=== PATIENT | male | born 1980 | race Caucasian/White ===

== ENCOUNTER 2022-05-08 13:38 | Inpatient (IN) | payer OTHER ==
[~2022-05-08] VITALS: Ht 172.7 cm; Wt 73.0 kg
[2022-05-08 14:19] LABS: BASOPHILS % (AUTO) 0.1 % (0.0-2.0); EOSINOPHILS % (AUTO) 0.2 % (1.0-6.0); HEMATOCRIT 42.4 % (41-53); HEMOGLOBIN 14.7 g/dL (13.5-17.5); LYMPHOCYTES # (AUTO) 1.6 K/uL (1.0-4.8); LYMPHOCYTES % (AUTO) 26.2 % (22.0-44.0); MEAN CORPUSCULAR HEMOGLOBIN 30.6 pg (26.0-34.0); MEAN CORPUSCULAR HGB CONC 34.7 G/dL (31.0-37.0); MEAN CORPUSCULAR VOLUME 88 fL (80-100); MONOCYTES # (AUTO) 0.5 K/uL (0.1-1.0); MONOCYTES % (AUTO) 8.8 % (2.0-9.0); NEUTROPHILS % (AUTO) 64.7 % (40.0-70.0); PLATELET COUNT (AUTO) 257 K/uL (150-450); RED BLOOD CELL COUNT(AUTO) 4.81 MIL/uL (4.50-5.90); RED CELL DISTRIBUTION WIDTH 12.9 % (11.5-14.5)
[2022-05-08 14:34] LABS: ANION GAP 9 mmol/L (8-16); CALCIUM, TOTAL 9.4 mg/dL (8.8-10.5); CARBON DIOXIDE 28 mmol/L (22-29); CHLORIDE 103 mmol/L (98-107); CREATININE 1.51 mg/dL (0.60-1.30); GLOMERULAR FILTR. RATE CALC 51 mL/min (>60); GLUCOSE,RANDOM 103 mg/dL (70-110); POTASSIUM 3.8 mmol/L (3.5-5.1); SODIUM SERUM 140 mmol/L (136-145); UREA NITROGEN, BLOOD 16 mg/dL (7-18)
[2022-05-08 14:39] LABS: ALANINE AMINOTRANSFERASE 28 U/L (12-78); ALBUMIN 4.3 g/dL (3.4-5.0); ALKALINE PHOSPHATASE 72 U/L (46-116); ASPARTATE AMINOTRANSFERASE 17 U/L (15-37); BILIRUBIN,TOTAL 0.4 mg/dL (0.1-1.0); TOTAL PROTEIN, SERUM 8.6 g/dL (6.4-8.2)
[2022-05-08 14:41] LABS: ACETAMINOPHEN < 2 mcg/mL (10-30)
[2022-05-08 14:48] LABS: SALICYLATE 0.9 mg/dL (2.8-20.0)
[2022-05-08 15:11] LABS: COVID AG,FIA SOURCE NASOPHARYNGEAL
[2022-05-08] MEDS ORDERED: ONDANSETRON HCL 4 MG TABLET PO PRN ×2 (16:45→21:45)
[2022-05-08] MEDS ORDERED: ALBUTEROL SULFATE HFA 90 MCG/PUFF 8 GM INHALER IH PRN (16:45)
[2022-05-08] MEDS ORDERED: NICOTINE 14 MG/24 HOUR PATCH TD PRN (16:45)
[2022-05-08] MEDS ORDERED: LOPERAMIDE HCL 2 MG CAPSULE PO PRN ×2 (16:45→21:45)
[2022-05-08] MEDS ORDERED: CloNIDine HCL 0.1 MG TABLET PO PRN (16:45)
[2022-05-08] MEDS ORDERED: SODIUM CHLORIDE 0.9% 1,000 ML IV ONE (16:45)
[2022-05-08] MEDS ORDERED: MAGNESIUM HYDROXIDE SUSPENSION 30 ML UDCUP PO PRN (16:45)
[2022-05-08] MEDS ORDERED: PETROLATUM,WHITE 28 GM JELLY TP PRN ×2 (16:45→21:45)
[2022-05-08] MEDS ORDERED: DOCUSATE SODIUM 100 MG CAPSULE PO PRN (16:45)
[2022-05-08] MEDS ORDERED: GuaiFENesin/D-METHORPHAN [SUGAR-FREE] 200-20MG/10 ML SYRUP UDCUP PO PRN ×2 (16:45→21:45)
[2022-05-08] MEDS ORDERED: MAG HYDROX/AL HYDROX/SIMETH ES 30 ML SUSPENSION UDCUP PO PRN ×2 (16:45→21:45)
[2022-05-08 21:04] VITALS: BP 135/70
[2022-05-08] MEDS ORDERED: OxyCODONE HCL/ACETAMINOPHEN 5-325 MG TABLET PO ONE ×2 (21:45→22:30)
[2022-05-09 02:29] LABS: APPEARANCE,URINE CLEAR (CLEAR); BILIRUBIN,URINE NEGATIVE (NEGATIVE); GLUCOSE, URINE (UA) NEGATIVE (NEGATIVE); KETONES,URINE NEGATIVE (NEGATIVE); LEUKOCYTE ESTERASE ,URINE NEGATIVE (NEGATIVE); NITRATE,URINE NEGATIVE (NEGATIVE); OCCULT BLOOD,URINE NEGATIVE (NEGATIVE); PH,URINE 5.5 (5.0-8.0); PROTEIN,URINE TRACE mg/dL (NEGATIVE); SPECIFIC GRAVITIY, URINE 1.008 (1.003-1.030); UROBILINOGEN,URINE <=1.0 mg/dL (<=1.0)
[2022-05-09 02:37] LABS: AMPHET/METH SCREEN,URINE NEGATIVE (NEGATIVE); BARBITURATE SCREEN, URINE NEGATIVE (NEGATIVE); BENZODIAZEPINES SCREEN,URINE NEGATIVE (NEGATIVE); CANNABINOID SCREEN,URINE NEGATIVE (NEGATIVE); COCAINE SCREEN,URINE NEGATIVE (NEGATIVE); METHADONE SCREEN, URINE NEGATIVE (NEGATIVE); OPIATE SCREEN,URINE NEGATIVE (NEGATIVE)
[2022-05-09 02:42] LABS: BACTERIA,URINE None Seen /HPF (None Seen); RBC,URINE None Seen /HPF (0-2); WBC,URINE 0-2 /HPF (0-5)
[2022-05-09 02:46] LABS: PHENCYCLIDINE SCREEN,URINE NEGATIVE (NEGATIVE)
[2022-05-09 04:25] VITALS: BP 103/69
[2022-05-09 07:33] VITALS: BP 106/64
[2022-05-09 07:35] LABS: BASOPHILS % (AUTO) 0.4 % (0.0-2.0); EOSINOPHILS % (AUTO) 1.5 % (1.0-6.0); HEMOGLOBIN 14.6 g/dL (13.5-17.5); LYMPHOCYTES # (AUTO) 1.9 K/uL (1.0-4.8); LYMPHOCYTES % (AUTO) 36.4 % (22.0-44.0); MEAN CORPUSCULAR HEMOGLOBIN 30.9 pg (26.0-34.0); MEAN CORPUSCULAR HGB CONC 34.7 G/dL (31.0-37.0); MEAN CORPUSCULAR VOLUME 89 fL (80-100); MONOCYTES # (AUTO) 0.5 K/uL (0.1-1.0); MONOCYTES % (AUTO) 10.4 % (2.0-9.0); NEUTROPHILS # (AUTO) 2.6 K/uL (1.8-7.7); NEUTROPHILS % (AUTO) 51.3 % (40.0-70.0); PLATELET COUNT (AUTO) 245 K/uL (150-450); RED BLOOD CELL COUNT(AUTO) 4.71 MIL/uL (4.50-5.90); RED CELL DISTRIBUTION WIDTH 13.3 % (11.5-14.5)
[2022-05-09 07:47] LABS: CREATININE 1.7 mg/dL (0.60-1.30)
[2022-05-09] MEDS ORDERED: SODIUM CHLORIDE 0.9% 1,000 ML IV ONE (09:45)
[2022-05-09] MEDS: AMOX TR/POT CLAV 500 MG/125 MG TABLET PO SCH ×2 (12:19→20:19)
[2022-05-09] MEDS: CIPROFLOXACIN HCL 0.3% 2.5 ML OPHTHALMIC SOLUTION AD SCH ×3 (12:19→20:19)
[2022-05-09 14:53] VITALS: BP 124/75
[2022-05-09 19:10] VITALS: BP 138/78
[2022-05-09] MEDS: ACETAMINOPHEN 325 MG TABLET PO PRN (22:05)
[2022-05-09] MEDS: TraMADol HCL 50 MG TABLET PO PRN (22:41)
[2022-05-10] MEDS: MORPHINE SULFATE 2 MG/ML SYRINGE IVP PRN ×4 (00:11→13:48)
[2022-05-10 03:07] VITALS: BP 134/77
[2022-05-10 06:31] LABS: ANION GAP 6 mmol/L (8-16); CALCIUM, TOTAL 9.1 mg/dL (8.8-10.5); CARBON DIOXIDE 28 mmol/L (22-29); CHLORIDE 105 mmol/L (98-107); CREATININE 1.06 mg/dL (0.60-1.30); GLUCOSE,RANDOM 121 mg/dL (70-110); POTASSIUM 3.7 mmol/L (3.5-5.1); SODIUM SERUM 139 mmol/L (136-145); UREA NITROGEN, BLOOD 9 mg/dL (7-18)
[2022-05-10 06:51] LABS: GLOMERULAR FILTR. RATE CALC > 60 mL/min (>60)
[2022-05-10 07:19] VITALS: BP 136/86
[2022-05-10] MEDS: CIPROFLOXACIN HCL 0.3% 2.5 ML OPHTHALMIC SOLUTION AD SCH ×4 (07:59→21:28)
[2022-05-10] MEDS: AMOX TR/POT CLAV 500 MG/125 MG TABLET PO SCH ×2 (07:59→21:28)
[2022-05-10] MEDS: RisperiDONE 1 MG TABLET PO SCH ×2 (13:49→21:28)
[2022-05-10 15:58] VITALS: BP 122/75
[2022-05-10 21:10] VITALS: BP 107/68
[2022-05-11 05:10] VITALS: BP 105/62
[2022-05-11 07:10] LABS: ANION GAP 8 mmol/L (8-16); CALCIUM, TOTAL 9.2 mg/dL (8.8-10.5); CARBON DIOXIDE 28 mmol/L (22-29); CHLORIDE 104 mmol/L (98-107); CREATININE 0.94 mg/dL (0.60-1.30); GLUCOSE,RANDOM 96 mg/dL (70-110); POTASSIUM 3.8 mmol/L (3.5-5.1); SODIUM SERUM 140 mmol/L (136-145); UREA NITROGEN, BLOOD 11 mg/dL (7-18)
[2022-05-11 07:14] LABS: GLOMERULAR FILTR. RATE CALC > 60 mL/min (>60)
[2022-05-11 07:32] VITALS: BP 111/65
[2022-05-11] MEDS: MORPHINE SULFATE 2 MG/ML SYRINGE IVP PRN ×3 (10:46→21:01)
[2022-05-11] MEDS: CIPROFLOXACIN HCL 0.3% 2.5 ML OPHTHALMIC SOLUTION AD SCH ×4 (10:50→20:25)
[2022-05-11] MEDS: AMOX TR/POT CLAV 500 MG/125 MG TABLET PO SCH ×2 (10:52→20:25)
[2022-05-11] MEDS: QUEtiapine FUMARATE 100 MG TABLET PO PRN ×2 (11:52→20:25)
[2022-05-11] MEDS: ACETAMINOPHEN 325 MG TABLET PO PRN ×2 (11:52→20:24)
[2022-05-11 15:48] VITALS: BP 139/74
[2022-05-11 20:05] VITALS: BP 140/76
[2022-05-11] MEDS: RisperiDONE 2 MG TABLET PO SCH (20:25)
[2022-05-11] MEDS: ZOLPIDEM TARTRATE 10 MG TABLET PO PRN (21:04)
[2022-05-12 05:20] VITALS: BP 107/66
[2022-05-12 06:52] LABS: ANION GAP 5 mmol/L (8-16); CALCIUM, TOTAL 9.3 mg/dL (8.8-10.5); CARBON DIOXIDE 31 mmol/L (22-29); CHLORIDE 104 mmol/L (98-107); CREATININE 1.16 mg/dL (0.60-1.30); GLUCOSE,RANDOM 97 mg/dL (70-110); POTASSIUM 3.9 mmol/L (3.5-5.1); SODIUM SERUM 140 mmol/L (136-145); UREA NITROGEN, BLOOD 16 mg/dL (7-18)
[2022-05-12 06:54] LABS: GLOMERULAR FILTR. RATE CALC > 60 mL/min (>60)
[2022-05-12] MEDS: CIPROFLOXACIN HCL 0.3% 2.5 ML OPHTHALMIC SOLUTION AD SCH ×4 (08:14→20:12)
[2022-05-12] MEDS: RisperiDONE 2 MG TABLET PO SCH ×2 (08:14→20:12)
[2022-05-12] MEDS: AMOX TR/POT CLAV 500 MG/125 MG TABLET PO SCH ×2 (08:14→20:12)
[2022-05-12] MEDS: MORPHINE SULFATE 2 MG/ML SYRINGE IVP PRN ×3 (08:17→22:05)
[2022-05-12 08:34] VITALS: BP 106/72
[2022-05-12] MEDS: ACETAMINOPHEN 325 MG TABLET PO PRN ×2 (08:49→22:52)
[2022-05-12] MEDS: TraMADol HCL 50 MG TABLET PO PRN ×2 (11:13→20:12)
[2022-05-12 15:24] VITALS: BP 110/74
[2022-05-12] MEDS: QUEtiapine FUMARATE 100 MG TABLET PO PRN ×2 (15:45→22:51)
[2022-05-12 19:15] VITALS: BP 121/88
[2022-05-12] MEDS: ZOLPIDEM TARTRATE 10 MG TABLET PO PRN (22:51)
[2022-05-13 05:30] VITALS: BP 102/74
[2022-05-13 07:56] VITALS: BP 111/78
[2022-05-13] MEDS: RisperiDONE 2 MG TABLET PO SCH (09:05)
[2022-05-13] MEDS: AMOX TR/POT CLAV 500 MG/125 MG TABLET PO SCH (09:05)
[2022-05-13] MEDS: ACETAMINOPHEN 325 MG TABLET PO PRN (09:05)
[2022-05-13] MEDS ORDERED: AMOX1TAB15 PO (09:44)
[2022-05-13] MEDS ORDERED: RISP2TAB45 PO (09:46)
== END 2022-05-13 12:30 | DRG 917 ==
LOC: EMS 13:38 → 6S 20:54 → EMS 21:43
PROVIDERS: ADMIT Internal Medicine; ATTEND Internal Medicine
DX: T39.312A Poisoning by propionic acid derivatives, intentional self-harm, initial encounter (principal); N17.0 Acute kidney failure with tubular necrosis; R45.851 Suicidal ideations; S00.81XA Abrasion of other part of head, initial encounter; F32.9 Major depressive disorder, single episode, unspecified; F41.9 Anxiety disorder, unspecified; K04.7 Periapical abscess without sinus; K40.90 Unilateral inguinal hernia, without obstruction or gangrene, not specified as recurrent; Z20.822 Contact with and (suspected) exposure to COVID-19; F25.1 Schizoaffective disorder, depressive type; F15.10 Other stimulant abuse, uncomplicated; Y92.89 Other specified places as the place of occurrence of the external cause; Z79.899 Other long term (current) drug therapy
CPT/HCPCS: 70450; 80048; 80053; 81001; 85025; 93005; 99285; G0480; G0481; J2270; J7030